=== PATIENT | female | born 1975 | race Caucasian/White ===

== ENCOUNTER 2019-09-21 10:39 | Emergency (ER) | payer SELFPAY ==
[~2019-09-21] VITALS: Ht 149.9 cm; Wt 53.8 kg
[2019-09-21 10:43] VITALS: Ht 149.9 cm; Wt 53.8 kg
[2019-09-21 11:31] LABS: BASOPHIL % 0.4 % (0-2); PLATELET COUNT 260 x10^3mcL (130-400); RED CELL DISTRIBUTION WIDTH 13.4 % (11.5-14.5)
[2019-09-21 11:40] LABS: UA SPECIFIC GRAVITY 1.025 (1.005-1.035); microscopic required? YES; urine erythrocyte 1+ (NEGATIVE)
[2019-09-21 13:09] LABS: ALKALINE PHOSPHATASE 86 U/L (46-116); ALT/SGPT 17 U/L (14-59); AMYLASE 69 U/L (25-115); AST/SGOT 8 U/L (15-37); BILIRUBIN TOTAL 0.21 mg/dL (0.20-1.00); CALCIUM 7.9 mg/dL (8.5-10.1); CARBON DIOXIDE 23.4 mmol/L (21-32); CHLORIDE SERUM 104 mmol/L (98-107); CREATININE SERUM 0.8 mg/dL (0.6-1.0); GFR1 > 60 mL/min; GLUCOSE SERUM 87 mg/dL (74-106); LIPASE 111 IU/L (73-393); POTASSIUM SERUM 3.8 mmol/L (3.5-5.1); SODIUM SERUM 137 mmol/L (136-145); TOTAL PROTEIN, SERUM 7.3 g/dL (6.4-8.2)
[2019-09-21 13:10] LABS: ALBUMIN 3.3 g/dL (3.4-5.0)
[2019-09-21 15:34] VITALS: BP 133/80
== END 2019-09-21 15:34 | disposition home or self-care (01) ==
LOC: ED 10:39
PROVIDERS: Emergency Medicine
DX: R10.13 Epigastric pain (principal); Z90.5 Acquired absence of kidney
CPT/HCPCS: C9113; J3490